=== PATIENT | female | born 1965 | race Hispanic/Latino ===

== ENCOUNTER 2021-02-10 12:39 | Emergency (ER) | payer BC, OTHER ==
[2021-02-10] MEDS ORDERED: ACETAMINOPHEN EXTRA STRENGTH 500 MG TABLET ONE (13:55)
[2021-02-10 14:27] LABS: BASOPHILS % (AUTO) 0.1 % (0.0-5.0); HEMATOCRIT 42.1 % (36-48); MEAN CORPUSCULAR HGB CONC 33.3 g/dL (32.0-36.0); MEAN CORPUSCULAR VOLUME 90.3 fL (79-99); MONOCYTES % (AUTO) 4.1 % (3.0-13.0); NEUTROPHILS % (AUTO) 81.3 % (40.0-77.0); PLATELET COUNT (AUTO) 217 K/uL (130-400); RED BLOOD CELL COUNT(AUTO) 4.66 MIL/uL (4.00-5.50); RED CELL DISTRIBUTION WIDTH 12.6 % (11.0-15.5); WHITE BLOOD COUNT (AUTO) 8.7 K/uL (4.8-10.8)
[2021-02-10 14:52] LABS: INR 0.97 (0.85-1.15); PROTHROMBIN TIME 10.6 SEC (9.6-11.6)
[2021-02-10 15:01] LABS: CRP QUANTITATIVE 62.7 mg/L (0.00-9.0)
[2021-02-10] MEDS ORDERED: CEFTRIAXONE SODIUM 1 GM ONE (15:18)
[2021-02-10] MEDS ORDERED: KETOROLAC TROMETHAMINE 30MG/ML ONE (15:18)
[2021-02-10] MEDS ORDERED: AZITHROMYCIN 250 MG TABLET PO ONE (15:18)
[2021-02-10] MEDS ORDERED: DEXAMETHASONE SOD PHOSPHATE 10MG/ML 1ML VIAL ONE (15:18)
[2021-02-10 15:20] LABS: PARTIAL THROMBOPLASTIN TIME 20.4 SEC (26.3-35.5)
[2021-02-10 15:30] LABS: BILIRUBIN,TOTAL 0.5 mg/dL (0.2-1.0); CREATININE 0.9 mg/dL (0.5-1.5)
[2021-02-10 16:06] LABS: ALBUMIN 3.4 g/dL (3.5-5.0); TOTAL PROTEIN, SERUM 8.4 g/dL (6.0-8.3)
[2021-02-10 16:24] LABS: ABG BASE EXCESS -0.6 mmol/L (-2.0-3.0); ABG HCO3 22.6 mmol/L (21.0-28.0); ABG OXYGEN SATURATION 93.2 % (95.0-99.0); ABG PCO2 33 mmHg (32-45)
== END 2021-02-10 18:57 | disposition home or self-care (01) ==
LOC: EDH 12:39
DX: U07.1 COVID-19 (principal); J18.9 Pneumonia, unspecified organism; J45.909 Unspecified asthma, uncomplicated
CPT/HCPCS: 36415; 36600; 71045; 80053; 82550; 82803; 83605; 84484; 85025; 85378; 85610; 85730; 86140; 87040 ×2; 93005; 96365; 96366; 96375; 99285; J0696; J1100; J1885